=== PATIENT | male | born 1960 | race Asian ===

== ENCOUNTER 2020-07-05 11:28 | Inpatient (IN) | payer OTHER, SELFPAY ==
[~2020-07-05] VITALS: Ht 167.6 cm; Wt 83.0 kg
[2020-07-05 11:37] VITALS: BP_SYST 183
[2020-07-05 12:09] LABS: BASOPHILS % (AUTO) 0.6 % (0.0-2.0); EOSINOPHILS % (AUTO) 0.4 % (0.0-4.0); HEMATOCRIT 43.5 % (36-54); LYMPHOCYTES # (AUTO) 0.4 K/uL (1.0-5.5); LYMPHOCYTES % (AUTO) 14.6 % (20.5-51.5); MEAN CORPUSCULAR HEMOGLOBIN 31 pg (27-31); MEAN CORPUSCULAR HGB CONC 35 % (32-36); MEAN CORPUSCULAR VOLUME 91 fL (79.0-98.0); MONOCYTES % (AUTO) 1.5 % (1.7-9.3); NEUTROPHILS # (AUTO) 2.4 K/uL (1.8-7.7); NEUTROPHILS % (AUTO) 82.9 % (40.0-70.0); PLATELET COUNT (AUTO) 206 K/uL (130-430); RED BLOOD CELL COUNT(AUTO) 4.79 MIL/uL (4.2-6.2); RED CELL DISTRIBUTION WIDTH 13.1 % (9.0-15.0); WHITE BLOOD COUNT (AUTO) 2.9 K/uL (4.8-10.8)
[2020-07-05 12:31] LABS: CALCIUM 8.1 mg/dL (8.4-11.0); CREATININE 1.14 mg/dL (0.55-1.30); POTASSIUM 3.9 mmol/L (3.5-5.1)
[2020-07-05 12:33] LABS: PROTHROMBIN TIME 10.1 SECS (9.5-12.5)
[2020-07-05 12:44] LABS: ALBUMIN 4.1 g/dL (3.4-4.8); TOTAL BILIRUBIN 2.6 mg/dL (0.0-1.0)
[2020-07-05] MEDS ORDERED: metroNIDAZOLE 500 mg/NS 100 ML IV ONE (13:30)
[2020-07-05] MEDS ORDERED: ONDANSETRON HCL 4 MG/2 ML VIAL IVP ONE (13:30)
[2020-07-05] MEDS ORDERED: PIPERACILLIN/TAZO 3.38 GM in NS 50 ML IV ONE (13:30)
[2020-07-05] MEDS ORDERED: NACL 0.9% 1,000 ML IV ONE (13:30)
[2020-07-05] MEDS ORDERED: MORPHINE 4 MG/ML INJ. SYRINGE IVP ONE (13:30)
[2020-07-05] MEDS ORDERED: PIPERACILLIN/TAZOBACTAM 3.375 GM/VIAL (ZOSYN) IV ONE (13:45)
[2020-07-05] MEDS ORDERED: ONDANSETRON HCL 4 MG/2 ML VIAL IVP PRN ×2 (13:45→20:45)
[2020-07-05] MEDS ORDERED: LR 1,000 ML IV ONE (14:30)
[2020-07-05] MEDS ORDERED: ACETAMINOPHEN 325 MG TABLET PO PRN (14:45)
[2020-07-05] MEDS: ACETAMINOPHEN 325 MG TABLET PO PRN (15:20)
[2020-07-05 16:31] VITALS: BP_SYST 118
[2020-07-05 16:36] VITALS: BP_SYST 118
[2020-07-05] MEDS ORDERED: LOSA100T3 PO (16:54)
[2020-07-05] MEDS ORDERED: ROSU10TA2 PO (16:54)
[2020-07-05] MEDS ORDERED: XALEYE OP (16:54)
[2020-07-05] MEDS ORDERED: AMLO5TAB4 PO (16:54)
[2020-07-05] MEDS: PIPERACILLIN/TAZO 3.375/DEX-IS 50 ML IV SCH (17:56)
[2020-07-05 18:24] LABS: COLOR,URINE YELLOW (YELLOW)
[2020-07-05 18:25] LABS: BILIRUBIN,URINE NEGATIVE (NEGATIVE); BLOOD, URINE TRACE (NEGATIVE); CLARITY/URINE SLIGHTLY HAZY (CLEAR); GLUCOSE,URINE NEGATIVE (NEGATIVE); KETONES,URINE NEGATIVE (NEGATIVE); LEUKOCYTE ESTERASE ,URINE NEGATIVE (NEGATIVE); NITRITE, URINE NEGATIVE (NEGATIVE); PROTEIN URINE TRACE (NEGATIVE); UROBILINOGEN,URINE 0.2 (0.2-1.0)
[2020-07-05 19:00] VITALS: BP_SYST 101
[2020-07-05 19:04] LABS: BACTERIA,URINE FEW /HPF (None Seen); RBC,URINE 0-3 /HPF (0-3); WBC,URINE 0-3 /HPF (0-3)
[2020-07-05 19:05] LABS: COARSE GRANULAR CASTS,URINE 0-10 /LPF (None Seen)
[2020-07-05 19:06] LABS: MUCUS,URINE None Seen /LPF (None Seen)
[2020-07-05 20:00] VITALS: BP_SYST 101
[2020-07-05] MEDS ORDERED: fentaNYL CITRATE/PF 100 MCG/2 ML AMP IVP PRN ×2 (20:45)
[2020-07-05 23:01] VITALS: BP_SYST 96
[2020-07-06] MEDS: PIPERACILLIN/TAZO 3.375/DEX-IS 50 ML IV SCH ×4 (00:08→17:54)
[2020-07-06 07:57] LABS: HEMATOCRIT 40.5 % (36-54); HEMOGLOBIN 13.6 g/dL (14.0-18.0); MEAN CORPUSCULAR HEMOGLOBIN 31 pg (27-31); MEAN CORPUSCULAR HGB CONC 34 % (32-36); MEAN CORPUSCULAR VOLUME 92 fL (79.0-98.0); PLATELET COUNT (AUTO) 169 K/uL (130-430); RED BLOOD CELL COUNT(AUTO) 4.41 MIL/uL (4.2-6.2); RED CELL DISTRIBUTION WIDTH 13.7 % (9.0-15.0); WHITE BLOOD COUNT (AUTO) 20.2 K/uL (4.8-10.8)
[2020-07-06 08:06] VITALS: BP_SYST 115
[2020-07-06 09:23] LABS: ALBUMIN 3.1 g/dL (3.4-4.8); CALCIUM 7.9 mg/dL (8.4-11.0); CREATININE 1.53 mg/dL (0.55-1.30); POTASSIUM 4.4 mmol/L (3.5-5.1); TOTAL BILIRUBIN 3.3 mg/dL (0.0-1.0)
[2020-07-06 11:10] LABS: BAND % (MANUAL) 27 % (0-6); LYMPHOCYTES % (MANUAL) 4 % (20-46)
[2020-07-06 11:11] LABS: BASOPHILS % (MANUAL) 0 % (0-2); EOSINOPHILS % (MANUAL) 0 % (0-7); METAMYELOCYTES % 2 % (0-0); MONOCYTES % (MANUAL) 7 % (0-11)
[2020-07-06 12:45] VITALS: BP_SYST 121
[2020-07-06 16:14] VITALS: BP_SYST 135
[2020-07-06 20:00] VITALS: BP_SYST 131
[2020-07-06] MEDS: ACETAMINOPHEN 325 MG TABLET PO PRN (20:28)
[2020-07-07] MEDS: PIPERACILLIN/TAZO 3.375/DEX-IS 50 ML IV SCH ×4 (00:01→18:02)
[2020-07-07 01:00] VITALS: BP_SYST 108
[2020-07-07 08:00] VITALS: BP_SYST 136
[2020-07-07 08:18] LABS: BASOPHILS % (AUTO) 0.4 % (0.0-2.0); EOSINOPHILS # (AUTO) 0.2 K/uL (0.0-0.4); EOSINOPHILS % (AUTO) 1.6 % (0.0-4.0); HEMATOCRIT 38.8 % (36-54); HEMOGLOBIN 13.4 g/dL (14.0-18.0); LYMPHOCYTES # (AUTO) 0.5 K/uL (1.0-5.5); LYMPHOCYTES % (AUTO) 4.6 % (20.5-51.5); MEAN CORPUSCULAR HEMOGLOBIN 32 pg (27-31); MEAN CORPUSCULAR HGB CONC 34 % (32-36); MEAN CORPUSCULAR VOLUME 91 fL (79.0-98.0); MONOCYTES # (AUTO) 0.6 K/uL (0.0-1.0); MONOCYTES % (AUTO) 5.6 % (1.7-9.3); NEUTROPHILS # (AUTO) 9.7 K/uL (1.8-7.7); NEUTROPHILS % (AUTO) 87.8 % (40.0-70.0); PLATELET COUNT (AUTO) 150 K/uL (130-430); RED BLOOD CELL COUNT(AUTO) 4.25 MIL/uL (4.2-6.2); RED CELL DISTRIBUTION WIDTH 13.6 % (9.0-15.0); WHITE BLOOD COUNT (AUTO) 11.1 K/uL (4.8-10.8)
[2020-07-07 12:00] VITALS: BP_SYST 142
[2020-07-07 16:57] VITALS: BP_SYST 138
[2020-07-07] MEDS ORDERED: AMOX-426 PO (17:25)
[2020-07-07 19:52] VITALS: BP_SYST 149
== END 2020-07-07 20:45 | disposition home or self-care (01) | DRG 343 ==
LOC: SED 11:28 → SMU 13:38
PROVIDERS: ADMIT Surgery; ATTEND Surgery
PROC: 0DTJ4ZZ Resection of Appendix, Percutaneous Endoscopic Approach (ICD-10-PCS; principal; 2020-07-05 19:00)
DX: K35.30 Acute appendicitis with localized peritonitis, without perforation or gangrene (principal); E78.00 Pure hypercholesterolemia, unspecified; I10 Essential (primary) hypertension; Z20.822 Contact with and (suspected) exposure to COVID-19; Z79.899 Other long term (current) drug therapy; Z88.8 Allergy status to other drugs, medicaments and biological substances; Z90.49 Acquired absence of other specified parts of digestive tract
CPT/HCPCS: 36415; 76376; 80053; 81000-TC; 82150-TC; 83605; 83690-TC; 85007; 85025; 85027; 85610-TC; 85730-TC; 86886; 86900; 86901; 87040-TC; 87081; 88304; 93005; 94010; 94760; 96365; 96367; 96375; C1727; J2270; J2405; J2543; J3490